=== PATIENT | female | born 1945 | race Two or more races ===

== ENCOUNTER → 2017-07-28 09:00 | Outpatient (CLI) | payer OTHER ==
[~2017-07-28] VITALS: Ht 152.4 cm; Wt 73.9 kg
[~2017-07-28 09:00] MED LIST: EVISTA60 MG PO; SYNTHROID88 MCG PO; VITAMIN D5000 UNIT PO
== END | disposition home or self-care (01) ==
LOC: LAB 09:00 → EKG 09:00 → ADM 12:45 → EDSTATUS 12:45 → SURH 08-09 10:15 → EDSTATUS 08-09 12:45 → SURH 08-09 12:45
DX: K92.1 Melena (principal); K57.32 Diverticulitis of large intestine without perforation or abscess without bleeding; Z01.810 Encounter for preprocedural cardiovascular examination

== ENCOUNTER 2017-10-17 08:26 | Inpatient (IN) | payer OTHER ==
[~2017-10-17] VITALS: Ht 157.5 cm; Wt 67.1 kg
== END 2017-10-20 11:47 | disposition home or self-care (01) | DRG 330 ==
LOC: ER 08:26 → SEC-K 12:12 → SURH 12:12 → O/R 12:12 → SURH 10-18 17:21
PROVIDERS: Colon & Rectal Surgery
PROC: 0DJD8ZZ Inspection of Lower Intestinal Tract, Via Natural or Artificial Opening Endoscopic (ICD-10-PCS; 2017-10-18)
PROC: 30233K1 Transfusion of Nonautologous Frozen Plasma into Peripheral Vein, Percutaneous Approach (ICD-10-PCS; 2017-10-18)
PROC: 0DTE4ZZ Resection of Large Intestine, Percutaneous Endoscopic Approach (ICD-10-PCS; principal; 2017-10-18 17:30)
DX: K57.32 Diverticulitis of large intestine without perforation or abscess without bleeding (principal); D68.2 Hereditary deficiency of other clotting factors; E03.8 Other specified hypothyroidism

== ENCOUNTER 2018-11-17 08:09 | Day surgery (SDC) | payer OTHER | END 2018-11-17 13:35 | disposition home or self-care (01) | LOC: AMB-ENDOS 08:09 | DX: K57.32 Diverticulitis of large intestine without perforation or abscess without bleeding (principal); K64.1 Second degree hemorrhoids ==